=== PATIENT | female | born 1985 | race Caucasian/White ===

== ENCOUNTER 2016-09-25 08:47 | Emergency (ER) | payer OTHER ==
[2016-09-25 08:57] VITALS: BP 126/86; PULSE 83; TEMP 97.9; BMI 40.6
[2016-09-25] MEDS ORDERED: IBUPROFEN 600 MG TABLET (FP) PO ONE ×2 (09:25→09:42)
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
== END 2016-09-25 11:58 | disposition home or self-care (01) ==
LOC: JERFT 08:47 → JER 08:47 → JERFT 11:58
PROC: 2W3FX1Z Immobilization of Left Hand using Splint (ICD-10-PCS; principal; 2016-09-25)
DX: S39.012A Strain of muscle, fascia and tendon of lower back, initial encounter (principal); S62.102A Fracture of unspecified carpal bone, left wrist, initial encounter for closed fracture; S80.02XA Contusion of left knee, initial encounter; V44.5XXA Car driver injured in collision with heavy transport vehicle or bus in traffic accident, initial encounter; W22.10XA Striking against or struck by unspecified automobile airbag, initial encounter; Y93.89 Activity, other specified; Y92.410 Unspecified street and highway as the place of occurrence of the external cause; Z98.84 Bariatric surgery status
CPT/HCPCS: 73110-TC-RT; 73130-TC-RT; 73560-TC-LT; 84703; 99283-25

== ENCOUNTER 2020-11-06 06:37 | Emergency (ER) | payer OTHER ==
[2020-11-06 07:20] VITALS: BP 108/71; PULSE 101; TEMP 98.8; BMI 63.9
[2020-11-06] MEDS ORDERED: SODIUM CHLORIDE 1,000 ML IV STA (07:30)
[2020-11-06] MEDS ORDERED: ACETAMINOPHEN 1000 MG/100 ML VIAL (NON FORMULARY) IVPB ONE (07:30)
[2020-11-06] MEDS ORDERED: ACETAMINOPHEN INJECTION 100 ML IVPB ONE (07:35)
[2020-11-06] MEDS ORDERED: ONDANSETRON 4 MG/2 ML VIAL IVPUSH ONE (07:57)
[2020-11-06] MEDS ORDERED: ONDANSETRON 4 MG/2 ML VIAL ONE (08:13)
[2020-11-06 08:21] LABS: BASO % 0.5 % (0-2.0); EOS % 0.2 % (0-4.5); HEMATOCRIT 42.4 % (32.4-45.2); HEMOGLOBIN 13.9 GM/dL (10.7-15.3); LYMPH % 15.8 % (8-40); MCH 27.7 pg (25.7-33.7); MCHC 32.7 g/dl (32.0-36.0); MEAN CELL VOLUME 84.6 fl (80-96); MEAN PLT VOLUME 9.4 fl (7.5-11.1); MONO % 5.1 % (3.8-10.2); NEUT % 78.4 % (42.8-82.8); PLATELET COUNT 210 K/MM3 (134-434); RBC 5.01 M/mm3 (3.60-5.2); RDW 15.1 % (11.6-15.6); WHITE BLOOD COUNT 9.4 K/mm3 (4.0-10.0)
[2020-11-06 08:28] LABS: INR 1.1 (0.83-1.09); PROTHROMBIN TIME (PATIENT) 13.5 SEC (9.7-13.0)
[2020-11-06 08:29] LABS: CALCIUM 8.8 mg/dL (8.5-10.1)
[2020-11-06 08:30] LABS: ALBUMIN 3.2 g/dl (3.4-5.0); BLOOD UREA NITROGEN 6.8 mg/dL (7-18)
[2020-11-06 08:33] LABS: CREATININE 0.8 mg/dL (0.55-1.3)
[2020-11-06 08:35] LABS: BILIRUBIN,TOTAL 0.4 mg/dL (0.2-1); TOT PROT 7.8 g/dl (6.4-8.2)
== END 2020-11-06 13:40 | disposition home or self-care (01) ==
LOC: JER 06:37
PROC: 3E0333Z Introduction of Anti-inflammatory into Peripheral Vein, Percutaneous Approach (ICD-10-PCS; principal; 2020-11-06)
PROC: 3E033GC Introduction of Other Therapeutic Substance into Peripheral Vein, Percutaneous Approach (ICD-10-PCS; 2020-11-06)
PROC: 3E0337Z Introduction of Electrolytic and Water Balance Substance into Peripheral Vein, Percutaneous Approach (ICD-10-PCS; 2020-11-06)
DX: K51.919 Ulcerative colitis, unspecified with unspecified complications (principal)
CPT/HCPCS: 36415; 74177-TC; 80053; 83690; 84703; 85025; 85610; 99285-25; J0131; Q9967

== ENCOUNTER 2022-12-08 17:48 | Emergency (ER) | payer OTHER ==
[2022-12-08] MEDS ORDERED: SODIUM CHLORIDE 1,000 ML IV STA (18:11)
[2022-12-08] MEDS ORDERED: ONDANSETRON 4 MG/2 ML VIAL IVPUSH ONE (18:11)
[2022-12-08] MEDS ORDERED: ONDANSETRON 4 MG/2 ML VIAL ONE (18:11)
[2022-12-08] MEDS ORDERED: ACETAMINOPHEN 1000 MG/100 ML BAG IVPB ONE (18:18)
[2022-12-08 18:33] LABS: HEMATOCRIT 37.8 % (32.4-45.2); HEMOGLOBIN 12.2 G/dL (10.7-15.3); MCH 27.7 pg (25.7-33.7); MCHC 32.2 g/dl (32.0-36.0); MEAN CELL VOLUME 85.8 fl (80-96); MEAN PLT VOLUME 9.7 fl (7.5-11.1); PLATELET COUNT 232.7 10^3/uL (134-434); RDW 15.8 % (11.6-15.6); WHITE BLOOD COUNT 6.5 10^3/uL (4.0-10.8)
[2022-12-08] MEDS ORDERED: ACETAMINOPHEN INJECTION 100 ML IVPB ONE (18:33)
[2022-12-08 18:48] LABS: ALBUMIN 3.9 g/dl (3.4-5.0); BILIRUBIN,TOTAL 0.4 mg/dl (0.2-1); CREATININE 0.6 mg/dl (0.55-1.3); POTASSIUM 4.6 mmol/L (3.5-5.1); TOT PROT 7.8 g/dl (6.4-8.2)
[2022-12-08 18:54] LABS: PLATELET ESTIMATE ADEQUATE
[2022-12-08 19:28] VITALS: BP 130/70; PULSE 75; RESP 18; TEMP 98.2; BMI 41.3
[2022-12-08] MEDS ORDERED: KETOROLAC TROMETHAMINE 30 MG/1 ML VIAL IVPUSH ONE (21:33)
[2022-12-08] MEDS ORDERED: KETOROLAC TROMETHAMINE 30 MG/1 ML VIAL ONE (21:35)
== END 2022-12-08 22:33 | disposition home or self-care (01) ==
LOC: FER 17:48
PROC: 3E033NZ Introduction of Analgesics, Hypnotics, Sedatives into Peripheral Vein, Percutaneous Approach (ICD-10-PCS; principal; 2022-12-08)
PROC: 3E0333Z Introduction of Anti-inflammatory into Peripheral Vein, Percutaneous Approach (ICD-10-PCS; 2022-12-08)
PROC: 3E033GC Introduction of Other Therapeutic Substance into Peripheral Vein, Percutaneous Approach (ICD-10-PCS; 2022-12-08)
PROC: 3E0337Z Introduction of Electrolytic and Water Balance Substance into Peripheral Vein, Percutaneous Approach (ICD-10-PCS; 2022-12-08)
DX: M54.50 Low back pain, unspecified (principal); R10.32 Left lower quadrant pain; R11.2 Nausea with vomiting, unspecified
CPT/HCPCS: 36415; 74177-TC; 80053; 81003; 81025; 83690; 85027; 87086; 99285-25; Q9967

== ENCOUNTER 2022-12-09 12:09 | Emergency (ER) | payer OTHER ==
[2022-12-09 12:19] VITALS: BP 116/71; PULSE 70; RESP 18; TEMP 98; BMI 41.0
== END 2022-12-09 13:57 | disposition home or self-care (01) ==
LOC: JERFT 12:09
PROC: 0UPD7HZ Removal of Contraceptive Device from Uterus and Cervix, Via Natural or Artificial Opening (ICD-10-PCS; principal; 2022-12-09)
DX: R10.13 Epigastric pain (principal); Z30.432 Encounter for removal of intrauterine contraceptive device; M54.9 Dorsalgia, unspecified
CPT/HCPCS: 58301; 99284-25

== ENCOUNTER 2022-12-09 16:16 | Emergency (ER) | payer OTHER ==
[2022-12-09 16:32] VITALS: RESP 18; TEMP 98; BMI 40.3
[2022-12-09] MEDS ORDERED: FAMOTIDINE 20 MG/50 ML IVPB 20 MG/50 ML MG IVPB ONE ×2 (18:18→18:39)
[2022-12-09] MEDS ORDERED: SODIUM CHLORIDE 0.9% 500 ML INFUS.BAG IV ONE (18:18)
[2022-12-09] MEDS ORDERED: morphine CARPU-JECT 2 MG/1 ML DISP.SYRIN IVPUSH ONE (18:18)
[2022-12-09] MEDS ORDERED: morphine CARPU-JECT 4 MG/1 ML DISP.SYRIN IVPUSH ONE (20:37)
[2022-12-09] MEDS ORDERED: morphine SULFATE 4 MG/ML VIAL ONE (20:43)
[2022-12-09 20:47] LABS: BASO % 0.6 % (0-2.0); EOS % 1.5 % (0-4.5); HEMATOCRIT 34.6 % (32.4-45.2); HEMOGLOBIN 11.2 GM/dL (10.7-15.3); LYMPH % 29.3 % (8-40); MCH 26.7 pg (25.7-33.7); MCHC 32.4 g/dl (32.0-36.0); MEAN CELL VOLUME 82.6 fl (80-96); MEAN PLT VOLUME 9.7 fl (7.5-11.1); MONO % 7.7 % (3.8-10.2); NEUT % 60.9 % (42.8-82.8); PLATELET COUNT 237 10^3/uL (134-434); RBC 4.19 M/mm3 (3.60-5.2); RDW 15.6 % (11.6-15.6); WHITE BLOOD COUNT 6.6 K/mm3 (4.0-10.0)
[2022-12-09 20:54] LABS: POTASSIUM 4.5 mmol/L (3.5-5.1)
[2022-12-09 20:56] LABS: BLOOD UREA NITROGEN 8.5 mg/dL (7-18); CALCIUM 8.6 mg/dL (8.5-10.1)
[2022-12-09 20:57] LABS: ALBUMIN 3.7 g/dl (3.4-5.0)
[2022-12-09 21:00] LABS: CREATININE 0.6 mg/dL (0.55-1.3)
[2022-12-09 21:01] LABS: BILIRUBIN,TOTAL 0.3 mg/dL (0.2-1); TOT PROT 7.5 g/dl (6.4-8.2)
[2022-12-09 22:45] VITALS: BP 122/70; PULSE 72
== END 2022-12-09 23:44 | disposition home or self-care (01) ==
LOC: JERFT 16:16 → JER 16:16 → JERFT 23:44
PROC: 3E033GC Introduction of Other Therapeutic Substance into Peripheral Vein, Percutaneous Approach (ICD-10-PCS; principal; 2022-12-09)
PROC: 3E033GC Introduction of Other Therapeutic Substance into Peripheral Vein, Percutaneous Approach (ICD-10-PCS; 2022-12-09)
PROC: 3E033GC Introduction of Other Therapeutic Substance into Peripheral Vein, Percutaneous Approach (ICD-10-PCS; 2022-12-09)
DX: R10.84 Generalized abdominal pain (principal); Z20.822 Contact with and (suspected) exposure to COVID-19
CPT/HCPCS: 0241U-QW; 36415; 76830-TC; 80053; 83690; 85025; 99284-25

== ENCOUNTER 2024-03-09 12:25 | Emergency (ER) | payer OTHER ==
[2024-03-09 12:51] VITALS: BP 116/80; PULSE 77; RESP 18; TEMP 98.2; BMI 42.3
[2024-03-09] MEDS ORDERED: KETOROLAC TROMETHAMINE 60 MG/2 ML VIAL ONE (13:16)
[2024-03-09] MEDS ORDERED: LIDOCAINE 5% TOPICAL PATCH ONE (13:17)
[2024-03-09] MEDS: KETOROLAC TROMETHAMINE 60 MG/2 ML VIAL IM ONE (13:23)
[2024-03-09] MEDS: LIDOCAINE 5% TOPICAL PATCH TP ONE (13:23)
[2024-03-09] MEDS ORDERED: LIDOCAINE PATCH REMOVAL MC ONE (22:00)
== END 2024-03-09 13:39 | disposition home or self-care (01) ==
LOC: FER 12:25
PROC: 3E0133Z Introduction of Anti-inflammatory into Subcutaneous Tissue, Percutaneous Approach (ICD-10-PCS; principal; 2024-03-09)
DX: M54.2 Cervicalgia (principal); M54.6 Pain in thoracic spine; V43.52XA Car driver injured in collision with other type car in traffic accident, initial encounter
CPT/HCPCS: 99284-25